=== PATIENT | male | born 1955 | race Caucasian/White ===

== ENCOUNTER 2016-10-01 21:57 | Emergency (ER) | payer BC ==
[2016-10-01] MEDS ORDERED: KETOROLAC TROMETHAMINE 30 MG/1 ML VIAL IVPUSH ONE (21:59)
[2016-10-01] MEDS ORDERED: SODIUM CHLORIDE 1,000 ML IV STA (21:59)
--- NOTE | 2016-10-01 22:00 | PDOC ---
[id number] 4d LEFT FLANK PAIN Time Seen by Provider: 10/01/16 21:59 - History of Present Illness Initial Comments: This 60-year-old man with a history of hyperlipidemia, hypertension and previous renal colic presents with a few day history of progressive left CVA/ flank pain. Patient states that he was away from home 4 days ago when he had several hour episode of left-sided back pain with some gross hematuria. The pain eventually resolved spontaneously without medications or visit to ER. Over the last 48 hours, he has had increasing pain in the same area area tonight , pain became severe and patient reported here. Patient most recently had left- sided renal colic November,. He was seen in an emergency room in [place] at that time. CT apparently revealed a small left-sided kidney stone; he was given fluid and pain medication and was discharged. Since then, he has had no other pain until tonight. He denies fever/chills or vomiting. Patient has been followed by Dr. Hurtado in the past for his urologic care. Past History - Past Medical History Allergies/Adverse Reactions: Allergies Allergy/AdvReac Type Severity Reaction Status Date / Time No Known Allergies Allergy Verified 10/01/16 21:59 Home Medications: Ambulatory Orders Amlodipine Besylate [Norvasc -] 2.5 mg PO DAILY 01/02/15 Simvastatin [Zocor -] 20 mg PO HS 01/02/15 Valsartan/Hydrochlorothiazide [Diovan Hct 160-25 mg Tablet] 1 combo PO DAILY Oxycodone HCl/Acetaminophen [Percocet 5-325 mg Tablet] 1 tab PO Q6H PRN #10 tablet MDD 3 tabs 10/01/16 Tamsulosin HCl [Flomax] 0.4 mg PO DAILY #20 cap.er.24h 10/01/16 Anemia: No Asthma: No Cancer: No Cardiac Disorders: No CVA: No COPD: No CHF: No Dementia: No Diabetes: No GI Disorders: No Disorders: No HTN: Yes Hypercholesterolemia: Yes Liver Disease: No Seizures: No Thyroid Disease: No - Surgical History Abdominal Surgery: No Appendectomy: No Cardiac Surgery: No Cholecystectomy: No Lung Surgery: No Neurologic Surgery: No Orthopedic Surgery: No - Psycho/Social/Smoking Cessation Hx Anxiety: No Suicidal Ideation: No Smoking Status: No Smoking History: Former smoker Have you smoked in the past 12 months: No Number of Cigarettes Smoked Daily: 0 If you are a former smoker, when did you quit?: 2004 Hx Alcohol Use: No Drug/Substance Use Hx: No Substance Use Type: None Hx Substance Use Treatment: No Review of Systems - Review of Systems Able to Perform ROS?: Yes Comments:: 12 point review of systems is negative except for what is noted in the history of present illness *Physical Exam - Physical Exam Comments: GENERAL:Adult male, in moderate distress secondary to left-sided back/flank pain Vital signs as noted HEAD: Normal with no signs of trauma. EYES: PERRLA, EOMI, sclera anicteric, conjunctiva clear. ENT: Ears normal, nares patent, oropharynx clear without exudates. Dry mucous membranes. NECK: Normal range of motion, supple without lymphadenopathy, JVD, or masses. LUNGS: Breath sounds equal, clear to auscultation bilaterally. No wheezes, and no crackles. HEART:Regular rate and rhythm, normal S1 and S2 without murmur, rub or gallop. ABDOMEN:.normal bowel sounds No guarding,tenderness or rebound.No masses No distention. Moderate left CVA/flank tenderness EXTREMITIES: Normal range of motion, no edema. No clubbing or cyanosis. No erythema, or tenderness. NEUROLOGICAL: Cranial nerves II through XII grossly intact. Normal speech. No focal neurological deficits. MUSCULOSKELETAL: Back non-tender to palpation, no CVA tenderness SKIN: Warm, Dry, normal turgor, no rashes or lesions noted. ED Treatment Course - LABORATORY CBC & Chemistry Diagram: 10/01/16 22:00 10/01/16 22:00 Progress Note - Progress Note Progress Note: This 60-year-old man with a history of renal colic in the past presents with a few day history of progressive left-sided pain consistent with renal colic. Patient given a liter of normal saline along with 30 mg of IV Toradol Urinalysis shows 3-5 RBCs/2-3 WBCs/few bacteria. Although patient has no symptoms consistent with UTI, because of the presence of few bacteria, urine culture and sensitivity will be sent. CBC is essentially normal. Chemistry profile significant only for mild hypokalemia (3.1); patient is taking diuretic as part of his antihypertensive regimen. Patient also has indication of mild prerenal azotemia with BUN of 25 and the creatinine of 1.1 Because the patient had persistent pain after Toradol IV, 1 mg of Dilaudid IV will be given for analgesia as well as 4 mg Zofran IV for nausea. Noncontrast spiral CT (renal stone protocol) performed and this reveals 3-4 mm proximal left ureteral calculus with moderate hydronephrosis. No other significant abnormalities were seen on the CT study. Results discussed with the patient. He feels significantly better after IV fluids and medications. Patient will be discharged with instructions to begin Flomax 0.4 mg daily (first dose given here in the emergency room). He should use Tylenol/Motrin/Aleve as needed for [id number] pain. A prescription (# 10) of Percocet 5/325 to be taken up to 3 times a day as needed for pain will be sent to his pharmacy. Patient was given 1 tablet of Percocet 5/325 to be taken as needed overnight (since patient's pharmacy is closed until the morning) . Patient should return to the emergency room if he has persistent, severe pain or develops vomiting/fever Patient will call his urologist, Dr. Hurtado in the morning to arrange follow- up within the next several days. *DC/Admit/Observation/Transfer Diagnosis at time of Disposition: Renal colic on left side - Discharge Dispostion Disposition: HOME Condition at time of disposition: Stable - Prescriptions Prescriptions: Tamsulosin HCl [Flomax] 0.4 mg PO DAILY #20 cap.er.24h Oxycodone HCl/Acetaminophen [Percocet 5-325 mg Tablet] 1 tab PO Q6H PRN #10 tablet MDD 3 tabs PRN Reason: Severe Pain - Referrals Referrals: Dennis Hurtado MD [Staff Physician] - Call tomorrow - Patient Instructions Printed Discharge Instructions: Kidney Stones -- Adult Additional Instructions: Drink plenty of water Flomax 0.4 mg daily Tylenol/Motrin/Aleve as needed for [id number]-ih-bnlnzpck pain Percocet 5/325 as needed for severe pain Return to ER if you have persistent severe pain or experiences vomiting Follow-up with your urologist within the next 5 days
[2016-10-01] MEDS ORDERED: HYDROmorphone HCL CARPU-JECT 1 MG/1 ML DISP.SYRIN IVPUSH ONE (22:11)
[2016-10-01 22:15] VITALS: BP 156/93; PULSE 76; TEMP 97.6; BMI 40.3
[2016-10-01] MEDS ORDERED: HYDROmorphone HCL CARPU-JECT 2 MG/1 ML DISP.SYRIN ONE (22:18)
[2016-10-01 22:21] LABS: ALBUMIN 4.5 g/dl (3.5-5.0); ALK PHOS 57 U/L (32-92); ANION GAP 10 (8-16); CALCIUM 9.6 mg/dl (8.4-10.2); CO2 27 mmol/L (22-28); CREATININE 1.1 mg/dl (0.6-1.3); GLUCOSE,RANDOM 137 mg/dl (74-106); SGOT/AST 27 U/L (10-42); SGPT/ALT 30 U/L (10-40); TOT PROT 7.5 g/dl (6.4-8.3)
[2016-10-01 22:22] LABS: BASOPHIL 3.3 % (0-2.0); EOSINOPHIL 1.5 % (0-4.5); MCH 28.2 pg (25.7-33.7); MCHC 33.5 g/dl (32.0-35.9); MEAN CELL VOLUME 84.4 fl (80-96); MEAN PLT VOLUME 9.6 fl (7.5-11.1); NEUTROPHILS 57.2 % (42.8-82.8); PLATELET COUNT 184 K/MM3 (134-434); RDW 12.7 % (11.9-15.9); WHITE BLOOD COUNT 10.4 K/mm3 (4.0-10.8)
[2016-10-01] MEDS ORDERED: ONDANSETRON 4 MG/2 ML VIAL IVPUSH ONE (23:20)
[2016-10-01] MEDS ORDERED: ONDANSETRON 4 MG/2 ML VIAL ONE (23:21)
[2016-10-01 23:33] LABS: URINE APPEARANCE Clear; URINE BILIRUBIN Negative (NEGATIVE); URINE GLUCOSE (UA) Negative (NEGATIVE); URINE KETONE Negative (NEGATIVE); URINE LEUK ESTERASE Negative (NEGATIVE); URINE NITRITE Negative (NEGATIVE); URINE PROTEIN Negative (NEGATIVE); URINE UROBILINOGEN 1.0 E.U/dl (0.2-1.0)
[2016-10-01 23:42] LABS: URINE BLOOD 1+ (NEGATIVE); URINE COLOR YELLOW; URINE WBC 0-2 (3-5)
[2016-10-01 23:43] LABS: URINE BACTERIA FEW /hpf (NEGATIVE)
[2016-10-01] MEDS ORDERED: TAMSULOSIN HCL 0.4 MG CAP.ER.24H (FP) PO ONE (23:45)
[2016-10-01] MEDS ORDERED: TAMSULOSIN HCL 0.4 MG CAP.ER.24H (FP) ONE (23:46)
[2016-10-01] MEDS ORDERED: OXYCODONE/APAP 5/325MG COMBO TABLET ONE (23:51)
== END 2016-10-01 23:57 | disposition home or self-care (01) ==
LOC: FER 21:57
PROC: 3E033NZ Introduction of Analgesics, Hypnotics, Sedatives into Peripheral Vein, Percutaneous Approach (ICD-10-PCS; principal; 2016-10-01)
PROC: 3E0333Z Introduction of Anti-inflammatory into Peripheral Vein, Percutaneous Approach (ICD-10-PCS; 2016-10-01)
PROC: 3E033GC Introduction of Other Therapeutic Substance into Peripheral Vein, Percutaneous Approach (ICD-10-PCS; 2016-10-01)
PROC: 3E0337Z Introduction of Electrolytic and Water Balance Substance into Peripheral Vein, Percutaneous Approach (ICD-10-PCS; 2016-10-01)
DX: N23 Unspecified renal colic (principal); E78.5 Hyperlipidemia, unspecified; I10 Essential (primary) hypertension; Z87.891 Personal history of nicotine dependence
CPT/HCPCS: 36415; 74176; 80053; 81003; 81015; 85025; 87086; 99282-25

== ENCOUNTER 2024-01-06 20:38 | Emergency (ER) | payer OTHER, BC ==
[2024-01-06 21:02] VITALS: BP 146/85; PULSE 62; RESP 18; TEMP 98.4; BMI 36.3
[2024-01-06] MEDS ORDERED: KETOROLAC TROMETHAMINE 60 MG/2 ML VIAL ONE (21:25)
[2024-01-06] MEDS: KETOROLAC TROMETHAMINE 60 MG/2 ML VIAL IM ONE (21:27)
== END 2024-01-06 23:15 | disposition home or self-care (01) ==
LOC: FER 20:38
PROC: 3E0233Z Introduction of Anti-inflammatory into Muscle, Percutaneous Approach (ICD-10-PCS; principal; 2024-01-06)
DX: M25.561 Pain in right knee (principal); M79.651 Pain in right thigh
CPT/HCPCS: 93971-TC; 96372; 99284-25